=== PATIENT | male | born 1965 | race Caucasian/White ===

== ENCOUNTER 2016-05-30 16:38 | Emergency (ER) | payer BC ==
[2016-05-30 17:23] LABS: SPECIFIC GRAVITY 1.025 (1.001-1.030); URINE BILIRUBIN 1+ (NEGATIVE); URINE BLOOD NEGATIVE (NEGATIVE); URINE GLUCOSE (UA) 2+ (NEGATIVE); URINE LEUKOCYTE ESTERASE TRACE (NEGATIVE); URINE NITRITE NEGATIVE (NEGATIVE); URINE PROTEIN 2+ (NEGATIVE); URINE UROBILINOGEN 1 mg/dL (0-1 mg/dl)
[2016-05-30 17:24] LABS: URINE APPEARANCE HAZY; URINE COLOR AMBER
[2016-05-30 17:30] LABS: URINE BACTERIA FEW; URINE CASTS 3-5 HYLINE /lpf; URINE MUCUS 3+
[2016-05-30] MEDS ORDERED: LACTATED RINGERS 1,000 ML ONE (21:53)
[2016-05-30 21:57] LABS: ABSOLUTE NEUTROPHIL COUNT 6.1 K/mm3 (1.8-7.7); BASO # 0.1 K/mm3 (0.0-0.2); BASO % 0.8 % (0.2-1.0); EOS # 0.5 (0.0-0.5); EOS % 4.4 % (0.9-2.9); HEMATOCRIT 46.4 % (32.0-52.0); HEMOGLOBIN 14.4 gm/l (14.0-18.0); IMM NEUT # 0.1 K/mm3 (0-0.2); IMM NEUT% 0.5 % (0-1); LYMPH # 3.7 (1.0-4.8); LYMPH % 33.2 % (15-45); MEAN CELL VOLUME 76.1 fl (80.0-94.0); MEAN CORPUSCULAR HEMOGLOBIN 23.6 pg (27.0-31.0); MEAN PLATELET VOLUME 10.5 fl (7.4-10.4); MONO # 0.8 (0.0-0.8); MONO % 7.4 % (4-12); NEUT % 53.7 % (43-75); PLATELET COUNT 310 K/mm3 (130-400); RED CELL DISTRIBUTION WIDTH 18.7 % (11.5-14.5)
[2016-05-30 22:15] LABS: ALB/GLOB RATIO 1.4 (>1.0); ALBUMIN 4.6 gm/dL (3.5-5.7)
[2016-05-30] MEDS ORDERED: AMOX 875 MG/CLAV 125 MG 1 EACH TABLET ONE (23:48)
--- NOTE | 2016-05-31 08:12 | CT ---
HEAD W/O CON History: Weakness with dizziness. Comparison: None. Procedure: 1 mm axial images were obtained through the head from the vertex to the base of the skull without intravenous contrast. Stacked reconstructed 5 mm images were then obtained in the axial, coronal and sagittal planes. Findings: The lateral ventricles are of normal size and shape without evidence of hydrocephalus. No evidence of midline shift is seen. No mass or mass-effect is observed. No evidence of intra- or extra-axial fluid collections or hemorrhage is identified. The casey/white differentiation is within expected. The basilar cisterns remain uneffaced. The posterior fossa structures are unremarkable. No acute osseous abnormalities are identified. There is note made of air-fluid levels within both maxillary sinuses. Impression: 1. Bilateral maxillary sinus disease. 2. An otherwise negative unenhanced CT scan of the head. The findings were called to the emergency room at 2304 hours, 05/30/2016, by [facility].
--- NOTE | 2016-05-31 08:12 | RAD ---
History: Weakness with dizziness. Comparison: None. Technique: 2 views Findings: Flowing osteophytes are evident over multiple thoracic levels suggesting diffuse idiopathic skeletal hyperostosis. The heart size is normal. There is no infiltrate, effusion or pneumothorax visualized. The hilar and mediastinal structures are intact. Impression: 1. No active intra-thoracic disease.
== END 2016-05-30 23:58 | disposition home or self-care (01) ==
LOC: ED 16:38
DX: J01.00 Acute maxillary sinusitis, unspecified (principal); I10 Essential (primary) hypertension; E11.9 Type 2 diabetes mellitus without complications; Z79.84 Long term (current) use of oral hypoglycemic drugs
CPT/HCPCS: 83605; 85025; 82550; 87040; 80053; 81001; 71020; 70450; 99284 ×2; 96360; 96361; 93005; A9270; J7120